=== PATIENT | male | born 1975 | race Native Hawaiian/Other Pacific Islander ===

== ENCOUNTER 2017-05-07 11:53 | Emergency (ER) | payer OTHER ==
[2017-05-07 12:10] VITALS: O2SAT 98
[2017-05-07] MEDS ORDERED: Lidocaine 1% Inj (20ml) ONE (13:35)
[2017-05-07] MEDS ORDERED: Tdap Vaccine 0.5 ml Vial (10-64 yrs) IM ONE ×2 (14:00→14:05)
--- NOTE | 2017-05-07 14:17 | RAD ---
PROCEDURE: Right Hand Radiographs. HISTORY: crush COMPARISON: None available. FINDINGS: BONES: Question irregularity involving the medial aspect of the proximal 2nd metacarpal seen on a single view and favored artifactual. Correlate with physical exam to exclude point tenderness. The remainder the visualized osseous structures appear unremarkable. JOINTS: No dislocation. SOFT TISSUES: Soft tissue swelling. No evidence of radiopaque foreign body. OTHER FINDINGS: None. IMPRESSION: Soft tissue swelling. Question irregularity involving the medial aspect of the proximal 2nd metacarpal seen on a single view and favored artifactual. Correlate with physical exam to exclude point tenderness. The remainder the visualized osseous structures appear unremarkable.
--- NOTE | 2017-05-07 14:17 | C.PDOC ---
History Of Present Illness 41 y/o male otherwise well came to ED after sustaining injury to right second digit. patient had a metal bed frame close on his hand. Has 3 cm lac to dorsal surface of 2nd MCP. Active bleeding. Pain 4/10, sharp, non radiating. Time Seen by Provider: 05/07/17 13:10 Chief Complaint (Nursing): Abnormal Skin Integrity Past Medical History Vital Signs: Last Vital Signs Temp 97.9 F 05/07/17 14:55 Pulse 68 05/07/17 14:55 Resp 18 05/07/17 14:55 BP 152/90 H 05/07/17 14:55 Pulse Ox 98 05/07/17 15:00 Surgical History: No Surg Hx Family History: States: No Known Family Hx - Social History Hx Alcohol Use: Yes Hx Substance Use: No - Immunization History Hx Tetanus Toxoid Vaccination: No Hx Influenza Vaccination: No Review Of Systems Constitutional: Negative for: Fever, Chills Cardiovascular: Negative for: Chest Pain Respiratory: Negative for: Cough, Shortness of Breath Gastrointestinal: Negative for: Nausea, Vomiting Physical Exam - Physical Exam Appears: Well Skin: Normal Color Head: Atraumatic Extremity: Right: Other (3 cm lac to right 2nd MCP, weakness to distal DIP. ) ED Course And Treatment O2 Sat by Pulse Oximetry: 98 Procedure: Wound Repair - Time Performed Time Performed: 14:05 - Time Out Time Out: Side verified - Procedure Procedure: Wound Repair: lac to 2nd right MCP area - Consent Obtained Consent obtained: Verbal - Performed by Performed by: Attending Physician - Indications Indication(s):: Laceration - Location Location:: Right, Dorsal Finger:: Right, Index Shape:: Linear Dimensions Length cm: 3cm Depth:: Subcutaneous fascia - Anesthetic Technique Anesthetic Technique: Regional block - Wound Examination Wound Examination:: Joint Involvement, Tendon Injury - Debris Debris:: None - Irrigated Irrigated with ml of normal saline: 500ml - Complexity Complexity:: Simple (one layer) - Wound repair method Sutures:: # (6), Size (4.0), Type (simple) Allen:: Steri-strips - Complications Complications: possible partial tendon injury - Patient tolerated procedure Patient Tolerated Procedure:: Well Medical Decision Making Medical Decision Making: Patient w/o insurance was refereed to [facility] for referral for hand surgery Disposition Counseled Patient/Family Regarding: Diagnosis, Need For Followup - Disposition Referrals: [facility] [Outside] Disposition: HOME/ ROUTINE Disposition Time: 14:33 Condition: STABLE Additional Instructions: Follow up in the [facility] tomorrow 9AM, as a walk in, as per Dr. Parada. You will need a referral for hand specialist for a partial tear of extensor indice. Instructions: Tendon Laceration (DC) Forms: General Discharge Instructions, [facility] (Ukrainian), Work Excuse - POA Present On Arrival: None - Clinical Impression Clinical Impression: Laceration of hand, Partial tear of tendon
[2017-05-07 15:06] VITALS: BP 152/90; PULSE 68; RESP 18; TEMP 97.9
== END 2017-05-07 15:21 | disposition home or self-care (01) ==
LOC: C.ER 11:53
DX: S61.411A Laceration without foreign body of right hand, initial encounter (principal); S66.310A Strain of extensor muscle, fascia and tendon of right index finger at wrist and hand level, initial encounter; W23.0XXA Caught, crushed, jammed, or pinched between moving objects, initial encounter; Z23 Encounter for immunization